=== PATIENT | male | born 1945 | race Caucasian/White ===

== ENCOUNTER 2018-03-17 08:48 | Outpatient (CLI) | payer OTHER ==
[~2018-03-17 08:48] MED LIST: AMIODARONE HCL400 MG; DILTIAZEM ER240 M2; ENALAPRIL MALEA20 MG; HYDRALAZINE HCL50 MG
== END 2018-03-17 09:30 | disposition home or self-care (01) ==
LOC: NUCLEAR 08:48
DX: I82.409 Acute embolism and thrombosis of unspecified deep veins of unspecified lower extremity (principal)

== ENCOUNTER 2018-10-12 10:55 | Inpatient (IN) | payer OTHER ==
[~2018-10-12] VITALS: Ht 170.2 cm; Wt 136.1 kg
== END 2018-10-29 16:41 | disposition home or self-care (01) | DRG 208 ==
LOC: ER 10:55 → MEDJ 10-13 11:17 → MEDI 10-13 11:17 → MEDJ 10-15 13:54 → MEDI 10-17 11:21
PROC: 4A12X4Z Monitoring of Cardiac Electrical Activity, External Approach (ICD-10-PCS; principal; 2018-10-13)
PROC: B246ZZZ Ultrasonography of Right and Left Heart (ICD-10-PCS; 2018-10-13)
PROC: 3E0F7GC Introduction of Other Therapeutic Substance into Respiratory Tract, Via Natural or Artificial Opening (ICD-10-PCS; 2018-10-13)
PROC: 0BH17EZ Insertion of Endotracheal Airway into Trachea, Via Natural or Artificial Opening (ICD-10-PCS; 2018-10-14)
PROC: 5A1945Z Respiratory Ventilation, 24-96 Consecutive Hours (ICD-10-PCS; 2018-10-14)
PROC: 4A033R1 Measurement of Arterial Saturation, Peripheral, Percutaneous Approach (ICD-10-PCS; 2018-10-14)
PROC: BB24ZZZ Computerized Tomography (CT Scan) of Bilateral Lungs (ICD-10-PCS; 2018-10-16)
PROC: B54DZZZ Ultrasonography of Bilateral Lower Extremity Veins (ICD-10-PCS; 2018-10-16)
DX: J45.901 Unspecified asthma with (acute) exacerbation (principal); I50.31 Acute diastolic (congestive) heart failure; J96.92 Respiratory failure, unspecified with hypercapnia; N39.0 Urinary tract infection, site not specified; I13.0 Hypertensive heart and chronic kidney disease with heart failure and stage 1 through stage 4 chronic kidney disease, or unspecified chronic kidney disease; E66.2 Morbid (severe) obesity with alveolar hypoventilation; I27.0 Primary pulmonary hypertension; B95.7 Other staphylococcus as the cause of diseases classified elsewhere; B37.2 Candidiasis of skin and nail; E66.01 Morbid (severe) obesity due to excess calories; I48.0 Paroxysmal atrial fibrillation; I73.89 Other specified peripheral vascular diseases; N18.3 Chronic kidney disease, stage 3 (moderate); R09.02 Hypoxemia; I35.0 Nonrheumatic aortic (valve) stenosis; L89.612 Pressure ulcer of right heel, stage 2; Z95.0 Presence of cardiac pacemaker

== ENCOUNTER 2019-12-15 14:25 | Inpatient (IN) | payer OTHER ==
[~2019-12-15] VITALS: Ht 167.6 cm; Wt 136.1 kg
--- NOTE | 2019-12-15 14:51 | NUR ---
SE RECIBE PTE ALERTA Y ORIENTADO X3,REFIERE SENTIRSE CORTO DE RESPIRACION ES PTE DE COPD LO REFIERE EL DR.JOSUE MONZON AL INTERNISTA LORENZA DELAROSA.
--- NOTE | 2019-12-15 15:51 | NUR ---
PACIENTE ALERTA Y ORIENTADO EN MARYBETH JOSEPH ESFERAS, ES ORIENTADO SOBRE ORDENES MEDICAS, REFIERE ENTENDER. SE COLECTAN MUESTRAS DE CHERISE, SE CANALIZA VENA Y SE ADMINISTRA LASIX 20 MG IV, TERAPIA RESPIRATORIA NOTIFICADA A MR HELLER. PENDIENTE PLACA DE PECHO PORTABLE. DR Beau DELAROSA EVALUA PACIENTE.
== END 2019-12-21 12:49 | disposition designated cancer center or children's hospital (05) | DRG 291 ==
LOC: ER 14:25 → ICU-2 16:03 → ICU 12-16 13:05 → MEDI 12-17 18:42
PROVIDERS: ADMIT Specialist
PROC: B246ZZZ Ultrasonography of Right and Left Heart (ICD-10-PCS; principal; 2019-12-15)
PROC: B246ZZZ Ultrasonography of Right and Left Heart (ICD-10-PCS; 2019-12-15)
PROC: 3E0F7GC Introduction of Other Therapeutic Substance into Respiratory Tract, Via Natural or Artificial Opening (ICD-10-PCS; 2019-12-15)
PROC: 4A12X4Z Monitoring of Cardiac Electrical Activity, External Approach (ICD-10-PCS; 2019-12-17)
DX: I13.0 Hypertensive heart and chronic kidney disease with heart failure and stage 1 through stage 4 chronic kidney disease, or unspecified chronic kidney disease (principal); I50.43 Acute on chronic combined systolic (congestive) and diastolic (congestive) heart failure; J96.01 Acute respiratory failure with hypoxia; J96.02 Acute respiratory failure with hypercapnia; L97.518 Non-pressure chronic ulcer of other part of right foot with other specified severity; L97.528 Non-pressure chronic ulcer of other part of left foot with other specified severity; E66.2 Morbid (severe) obesity with alveolar hypoventilation; I48.0 Paroxysmal atrial fibrillation; I35.0 Nonrheumatic aortic (valve) stenosis; I83.015 Varicose veins of right lower extremity with ulcer other part of foot; I83.025 Varicose veins of left lower extremity with ulcer other part of foot; N18.3 Chronic kidney disease, stage 3 (moderate); I34.0 Nonrheumatic mitral (valve) insufficiency; B96.89 Other specified bacterial agents as the cause of diseases classified elsewhere; B95.1 Streptococcus, group B, as the cause of diseases classified elsewhere

== ENCOUNTER 2021-12-14 18:53 | Emergency (ER) | payer OTHER ==
[~2021-12-14] VITALS: Ht 167.6 cm; Wt 139.3 kg
[2021-12-14] MEDS ORDERED: LIPITOR40 M1 (20:05)
[2021-12-14] MEDS ORDERED: ELIQUIS2.5 MG (20:05)
[2021-12-14] MEDS ORDERED: LASIX20 MG (20:05)
[2021-12-14] MEDS ORDERED: ZESTRIL20 MG (20:06)
[2021-12-14] MEDS ORDERED: CARVEDILOL6.25 MG (20:06)
== END 2021-12-15 00:23 | disposition home or self-care (01) ==
LOC: ER 18:53
DX: I16.9 Hypertensive crisis, unspecified (principal); I10 Essential (primary) hypertension; E11.9 Type 2 diabetes mellitus without complications; R51.9 Headache, unspecified; Z86.79 Personal history of other diseases of the circulatory system; Z95.0 Presence of cardiac pacemaker

== ENCOUNTER 2023-10-17 09:54 | Emergency (ER) | payer OTHER ==
[~2023-10-17] VITALS: Ht 167.6 cm; Wt 136.1 kg
[~2023-10-17 09:54] MED LIST changes: +CARVEDILOL6.25 MG; +ELIQUIS2.5 MG; +LASIX20 MG; +LIPITOR40 M1; +ZESTRIL20 MG
[2023-10-17] MEDS ORDERED: AMIODARONE HCL100 MG PO (10:54)
[2023-10-17] MEDS ORDERED: CARVEDILOL ER40 MG PO (10:55)
[2023-10-17] MEDS ORDERED: AMLODIPINE BESYL5 MG PO (10:56)
[2023-10-17 15:05] LABS: HEMATOCRIT 43.2 % (39.0-48.0); HEMOGLOBIN 14.5 g/dL (13-16.00); MEAN CELL VOLUME 95.3 fL (80.0-100.00); MEAN CORPUSCULAR HGB CONC 33.6 g/dl (32.0-36.0); PLATELET COUNT 191 K/uL (150-450); RED BLOOD COUNT 4.53 M/uL (4.00-6.00); RED CELL DISTRIBUTION WIDTH 15.2 % (11.5-14.5)
[2023-10-17 15:25] LABS: CALCIUM 9.2 mg/dL (8.5-10.1); CREATININE SERUM 1.21 mg/dL (0.70-1.30); GFR 58.46; POTASSIUM 4.52 mEq/L (3.5-5.1)
[2023-10-17 15:57] LABS: D DIMER 0.4 MG/L; PARTIAL THROMBOPLASTIN TIME 31.5 SECONDS (22.0-34.0)
[2023-10-17 16:09] LABS: INR 1.08; PROTHROMBIN TIME 11.3 SECONDS (9.0-11.5)
== END 2023-10-17 17:30 | disposition home or self-care (01) ==
LOC: ER 09:54
PROVIDERS: Nurse Practitioner Family
DX: I87.2 Venous insufficiency (chronic) (peripheral) (principal); M79.662 Pain in left lower leg; E78.00 Pure hypercholesterolemia, unspecified; I10 Essential (primary) hypertension; Z95.0 Presence of cardiac pacemaker; Z95.4 Presence of other heart-valve replacement
CPT/HCPCS: 36415; 93971; 96372; 99284; J2360

== ENCOUNTER 2024-01-22 07:12 | Outpatient (CLI) | payer OTHER ==
[~2024-01-22 07:12] MED LIST changes: +AMIODARONE HCL100 MG PO; +AMLODIPINE BESYL5 MG PO; +CARVEDILOL ER40 MG PO
== END 2024-01-22 07:13 | disposition home or self-care (01) ==
LOC: NUCLEAR 07:12
PROVIDERS: ATTEND Internal Medicine
DX: D35.1 Benign neoplasm of parathyroid gland (principal)
CPT/HCPCS: 78070; A9500

== ENCOUNTER 2025-06-24 14:07 | Outpatient (CLI) | payer OTHER | END 2025-06-24 14:15 | disposition home or self-care (01) | LOC: LAB 14:07 | PROVIDERS: ATTEND Urology | DX: R97.20 Elevated prostate specific antigen [PSA] (principal) ==

== ENCOUNTER 2025-07-20 07:05 | Outpatient (CLI) | payer OTHER | END 2025-07-20 07:17 | disposition home or self-care (01) | LOC: SONOGRAMA 07:05 | PROVIDERS: ATTEND Urology | DX: C61 Malignant neoplasm of prostate (principal); N40.1 Benign prostatic hyperplasia with lower urinary tract symptoms; R97.20 Elevated prostate specific antigen [PSA] ==